=== PATIENT | female | born 1975 | race Caucasian/White ===

== ENCOUNTER 2020-10-07 16:17 | Outpatient (REF) | payer OTHER, SELFPAY ==
--- NOTE | 2020-10-07 16:27 | XR_ITS ---
EXAMINATION: BILATERAL KNEES AND BILATERAL FEET CLINICAL INFORMATION: Pain COMPARISON: The studies of June 12, 2017 and May 24, 2017 TECHNIQUE: AP and lateral views of each knee. 3 views of each foot. FINDINGS: 2 views of the left knee do not demonstrate any evidence of acute fracture dislocation. No effusion is appreciated. There is severe narrowing of the medial joint space compartment with some marginal sclerosis and spurring. The lateral joint space is maintained. There is spurring about the undersurface of the patella and femoral head. 2 views of the right knee do not demonstrate any evidence of acute fracture or dislocation. No effusion is identified. There is narrowing of the medial joint space compartment. Spurring undersurface of the patella is seen. There is no evidence of acute fracture or dislocation of the left foot. Prominent calcaneal spurs at seen sites of insertion of Achilles and plantar tendons. Joint spaces are maintained. No erosive change noted. There is no evidence of acute fracture or dislocation of the right foot. Calcaneal spurs sites insertion of the Achilles and plantar tendons evident. There is some spurring dorsum of the proximal navicular without overlying soft tissue swelling. Repeat foreign bodies are seen within the soft tissues about the medial aspect of the first proximal phalanx. There appears be some degenerative change involving posterior aspect of the subtalar joint. There is a prominent os sustentacular tracy. XR/XR foot RT min 3V IMPRESSION: Bilateral degenerative change of the knees involving the medial joint space compartments and patellofemoral joints. Bilateral calcaneal spurs involving sites of insertion of Achilles and plantar tendons.
== END 2020-10-07 16:18 | disposition home or self-care (01) ==
LOC: HO.HMGCX 16:17
PROVIDERS: PCP Internal Medicine; Visit Provider Internal Medicine
DX: M25.561 Pain in right knee (principal); M25.562 Pain in left knee; M79.672 Pain in left foot; M79.671 Pain in right foot
CPT/HCPCS: 73560; 73630

== ENCOUNTER 2020-12-11 14:03 | Outpatient (REF) | payer OTHER, SELFPAY ==
[2020-12-11 16:38] LABS: MANUAL DIFF FLAG NO
[2020-12-11 16:41] LABS: Basophils Percent Auto 0.4 % (0-2); Eosinophils Absolute Auto 0.1 X10*3/uL (0.0-0.4); Eosinophils Percent Auto 1.5 % (0-4); Hematocrit 45.1 % (37-47); Hemoglobin 15.3 g/dl (12.0-16.0); Imm Gran Abs Auto 0.01 X10*3/uL (0.00-0.03); Imm Gran Pct Auto 0.2 % (0.0-0.4); Lymphocytes Absolute Auto 1.8 X10*3/uL (1.2-4.9); Lymphocytes Percent Auto 37.7 % (20-40); Mean Corpuscular HGB Conc 33.9 g/dl (31.0-35.0); Mean Corpuscular Hemoglobin 30.5 pg (27.0-33.0); Mean Corpuscular Volume 89.8 fL (80-98); Mean Platelet Volume 10.1 fL (9.4-12.3); Monocytes Absolute Auto 0.4 X10*3/uL (0.1-1.2); Monocytes Percent Auto 7.9 % (2-11); Neutrophils Absolute Auto 2.5 X10*3/uL (2.0-8.3); Neutrophils Percent Auto 52.3 % (45-73); Platelet Count 247 X10*3/uL (160-400); Red Blood Count 5.02 X10*6/uL (4.20-5.50); Red Cell Distribution Width 11.7 % (11.0-16.0); White Blood Count 4.8 X10*3/uL (4.8-10.8)
[2020-12-11 17:18] LABS: Alanine Aminotransferase 80 U/L (0-31); Albumin Level 4.1 g/dL (3.5-5.0); Alkaline Phosphatase 73 U/L (39-117); Anion Gap 15 (12-20); Aspartate Amino Transferase 40 U/L (5-31); Bilirubin Direct 0.3 mg/dL (0.0-0.5); Bilirubin Total 0.8 mg/dL (0.0-1.0); Blood Urea Nitrogen 12 mg/dL (9-16); Calcium 8.8 mg/dL (8.4-10.2); Carbon Dioxide 24 mmol/L (22-29); Chloride 105 mmol/L (96-108); Cholesterol 195 mg/dL; Estimated Glomerular Filt Rate > 60; Glucose Fasting 106 mg/dL (60-99); HDL Cholesterol 40 mg/dL; LDL Cholesterol Calculated 121 mg/dl; Potassium 4.2 mmol/l (3.3-5.1); Sodium 140 mmol/L (135-145); Total Protein 7.1 g/dL (6.5-8.0); Triglycerides 171 mg/dL
[2020-12-11 17:22] LABS: Glucose Urine UA NEG (NEG); Leukocyte Esterase Urine TRACE (NEG); Nitrite Urine NEG (NEG); Specific Gravity - Urine 1.025 (1.005-1.025); Urine Blood 1+ (NEG); Urine Ketones NEG (NEG); Urine Protein NEG (NEG-TRACE)
[2020-12-11 17:25] LABS: TSH reflex Free T4 1.73 mIU/mL (0.32-4.0)
[2020-12-11 17:28] LABS: Appearance Urine HAZY; Color Urine AMBER
[2020-12-11 18:08] LABS: Bacteria Urine 1+ /LPF; Mucus Urine 2+ /LPF; Squamous Epithelial Cell Urine 2+ /LPF
== END 2020-12-11 14:04 | disposition home or self-care (01) ==
LOC: HO.HMGCLDS 14:03
PROVIDERS: PCP Internal Medicine; Visit Provider Internal Medicine
DX: R42 Dizziness and giddiness (principal); E66.9 Obesity, unspecified; M25.562 Pain in left knee; M25.561 Pain in right knee; R53.83 Other fatigue; M79.671 Pain in right foot; M79.672 Pain in left foot
CPT/HCPCS: 36415; 80048; 80061; 80076; 81001; 81003; 84443; 85025; 87086

== ENCOUNTER 2022-02-01 08:01 | Outpatient (REF) | payer OTHER, SELFPAY ==
[2022-02-05 09:52] LABS: HPV mRNA E6/E7 rflx Not Detected (Not Detected)
== END 2022-02-01 08:02 | disposition home or self-care (01) ==
LOC: HO.LAB 08:01
PROVIDERS: Advanced Practice Midwife; PCP Internal Medicine; Visit Provider Obstetrics & Gynecology
DX: Z01.419 Encounter for gynecological examination (general) (routine) without abnormal findings (principal); Z11.51 Encounter for screening for human papillomavirus (HPV)
CPT/HCPCS: 87624; 88142

== ENCOUNTER 2022-05-20 15:19 | Outpatient (REF) | payer OTHER, SELFPAY ==
--- NOTE | ~2022-05-20 | MM_ITS ---
EXAMINATION: MM SCREENING DIGITAL BREAST TOMOSYNTHESIS, BILATERAL CLINICAL INFORMATION: Screening. Asymptomatic. Age 46. No prior breast imaging. Family history breast cancer, paternal aunt. The lifetime risk of breast cancer based on the Tyrer-Cuzick Model is 17%. COMPARISON: None (current study represents initial baseline exam). TECHNIQUE: Digital breast tomosynthesis is performed in both the craniocaudal and mediolateral oblique views along with computer-aided detection (CAD). Synthesized 2D images are generated from the tomosynthesis. Additional left CC view is provided. FINDINGS: The breasts are almost entirely fatty (ACR BI-RADS breast composition Category a). There are normal background stromal markings. No significant mass or architectural abnormality. There are scattered benign round and predominantly dermal calcifications in both breasts. The axilla are unremarkable. Skin contours are smooth. MM/MM tomosynthesis screening BI IMPRESSION: No mammographic evidence of malignancy. ASSESSMENT: BI-RADS 2: Benign RECOMMENDATION: Routine annual mammography screening. This patient's information was entered into a reminder system with a target due date for their next mammogram.
== END 2022-05-20 15:20 | disposition home or self-care (01) ==
LOC: HO.MAMMO 15:19
PROVIDERS: PCP Internal Medicine; Visit Provider Obstetrics & Gynecology
DX: Z12.31 Encounter for screening mammogram for malignant neoplasm of breast (principal)
CPT/HCPCS: 77063; 77067

== ENCOUNTER 2023-08-15 08:14 | Outpatient (AMB) | payer OTHER, SELFPAY ==
--- NOTE | 2023-08-15 08:24 | MHC.OFFVIS ---
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 No complaints. Last Pap/HPV was negative in 02/15 Last Mammogram was BI-RADS 2 in 05/18 No previous screening colonoscopy PFSH Medical History Nocturia Lightheaded Tired Obesity Foot pain, bilateral Knee pain, bilateral Surgical History Hx of gastric bypass Hx of cholecystectomy Family History Father No problems noted. Mother CVD (cardiovascular disease) Son No problems noted. Son No problems noted. Daughter No problems noted. Paternal Grandmother History of breast cancer Paternal Aunt History of breast cancer Social History Household Members: Spouse Housing: House Alcohol intake: current Alcohol intake frequency: a few times a week Patient Tobacco Use Status: Never used Tobacco Second Hand Smoke Exposure: No service: No Current occupational status: employed Current occupation: [employer] Sexually active: Yes Sexual orientation: Straight/Heterosexual Gender identity: Female Female Reproductive History Menstrual Total pregnancies: 3 Full term: 3 Number of Living Children: 3 Date of last pap smear: 02/03/22 Date of Mammogram: 05/20/22 Review of Systems Const All systems reviewed & are unremarkable except as noted in HPI and below Card Reports as per HPI Resp Reports as per HPI GI Reports as per HPI and Reports no additional complaints Reports as per HPI Physical Exam Vital Signs: BMI result Body Mass Index 36.0 Const General: cooperative, healthy appearing and comfortable Chest Chest palpation & inspection: normal inspection of the chest and normal palpation of entire chest wall Breast/axilla inspection: normal inspection of the breasts and normal inspection of the axillae Breast/axilla palpation: normal palpation of the breasts, normal palpation of the axillae and no axillary lymphadenopathy Resp Effort & Inspection: normal respiratory effort Auscultation: clear to auscultation bilaterally Percussion: percussion normal Cardio Palpation: normal PMI Rate: regular rate Rhythm: regular rhythm Heart sounds: no murmurs and no rubs Peripheral pulses: Peripheral pulses 2+ throughout GI Inspection: Yes normal to inspection Palpation (GI): Soft to palpation, nontender, no guarding, not rigid and No hepatosplenomegaly present Percussion: Yes normal to percussion Auscultation: normal bowel sounds Rectal Exam - Female: deferred General: Yes bladder normal to palpation External Female Exam: No lesion Speculum Exam - Vagina: normal appearance of the vagina, normal palpation, normal vaginal discharge and not erythematous Speculum Exam - Cervix: normal appearance of the cervix and normal palpation Bimanual exam- vagina & uterus: normal bimanual exam, normal palpation, uterine size normal, bladder normal to palpation, consistency normal and normal palpation Bimanual Exam- Adnexa, other: normal adnexae, no masses and no tenderness Assessment & Plan Assessment & Plan (1) Well woman exam: Code(s): Z01.419 - Encounter for gynecological examination (general) (routine) without abnormal findings Plan: Cotesting not indicated this year. Mammogram ordered. Counseled the patient about the recommended dietary allowance of 1000 mg of Calcium & 600 IU of vitamin D. The patient was instructed to perform monthly self-breast exams and to schedule an annual exam in a year; will refer to GI for screening colonoscopy. All questions answered and the patient verbalized understanding. Instructed the patient to schedule annual exam in a year Orders: Orders MM screening mammo BI Today Z12.31 - Encounter for screening mammogram for malignant neoplasm of breast Referrals Gastroenterology Referral Z12.11 - Encounter for screening for malignant neoplasm of colon Coding Level of Care Code Est Pt Prev Care 40-64y(46074) Diagnoses Well woman exam Z01.419
[2023-08-15 08:25] VITALS: BP 120/74; BMI 36.0
== END 2023-08-15 08:41 | disposition home or self-care (01) ==
PROVIDERS: PCP Internal Medicine; Visit Provider Obstetrics & Gynecology
DX: Z01.419 Encounter for gynecological examination (general) (routine) without abnormal findings (principal)
CPT/HCPCS: 99396

== ENCOUNTER → 2023-08-15 08:14 | Outpatient (BNVA) | payer OTHER, SELFPAY | PROVIDERS: PCP Internal Medicine; Visit Provider Obstetrics & Gynecology | DX: Z01.419 Encounter for gynecological examination (general) (routine) without abnormal findings (principal) | CPT/HCPCS: 99396 ==

== ENCOUNTER 2023-11-07 12:34 | Outpatient (AMB) | payer OTHER, SELFPAY ==
[2023-11-07 12:40] VITALS: BP 122/70; PULSE 72; O2SAT 98; BMI 37.0
--- NOTE | 2023-11-07 12:40 | MHC.PC.OV ---
Vital Signs 11/07/23 12:40 Height 5 ft 7 in Weight 236 lb BMI 37.0 BP 122/70 Blood Pressure Location Rt brachial Position Sitting Pulse 72 Pulse Source Pulse Oximeter Pulse Oximetry (%) 98 Oxygen Delivery Method Room Air Intake Visit Reasons: post COVID congestion Allergies acetaminophen [From Percocet] Allergy (Unknown, Verified 11/07/23 12:41) stomach upset oxycodone [From Percocet] Allergy (Unknown, Verified 11/07/23 12:41) stomach upset Surgical Glue Adverse Reaction (Unknown, Uncoded 08/15/23 08:25) unknown Medication List - Last Reconciled 11/07/23 by Sylvia Thorne MD ibuprofen 400 mg PO Q8H PRN Tobacco use date assessed: 11/07/23 Dental Screening Dental Screen Date: 11/07/23 Did you have a dental visit in the last 12 months?: No Did you have a dental problem in the last 6 months where you did not have access to dental care?: No Was dental information given to patient?: No HPI post COVID congestion HPI Details Patient is a 48-year-old female who has not been seen since 2020 came in today to be evaluated for possible chest infection Patient says that 2 weeks ago she had COVID infection, and since then she continued cough and is now productive of yellow phlegm Initially she had chills, but now feels shortness of breath with exertion, and feeling tired and fatigued. There is no nausea vomiting abdominal pain On examination patient starts coughing with deep breath I have ordered chest x-ray She is to take azithromycin course along with prednisone 20 mg for 5 days Follow-up appointment to be booked in 2 weeks FOR[facility]LY [facility], [facility] Medical History Nocturia Lightheaded Tired Obesity Foot pain, bilateral Knee pain, bilateral Surgical History Hx of gastric bypass Hx of cholecystectomy Family History Father No problems noted. Mother CVD (cardiovascular disease) Son No problems noted. Son No problems noted. Daughter No problems noted. Paternal Grandmother History of breast cancer Paternal Aunt History of breast cancer Social History Household Members: Spouse Housing: House Alcohol intake: current Alcohol intake frequency: a few times a week Patient Tobacco Use Status: Never used Tobacco e-Cigarette/Vaping Use: Never Used Second Hand Smoke Exposure: No service: No Current occupational status: employed Current occupation: [employer] Sexual orientation: Straight/Heterosexual Gender identity: Female Cognitive needs: No Hearing needs: No Vision needs: Yes Questionnaire PHQ-9 Over the last 2 weeks, how often have you been bothered by any of the following problems? 1. Little interest or pleasure in doing things: not at all 2. Feeling down, depressed, or hopeless: not at all 3. Trouble falling or staying asleep, or sleeping too much: several days 4. Feeling tired or having little energy: several days 5. Poor appetite or overeating: not at all 6. Feeling bad about yourself - or that you are a failure or have let yourself or your family down: not at all 7. Trouble concentrating on things, such as reading the newspaper or watching television: not at all 8. Moving or speaking so slowly that other people could have noticed. Or the opposite - being so fidgety or restless that you have been moving around a lot more than usual: not at all 9. Thoughts that you would be better off or of hurting yourself in some way: not at all Total score: 2 Depression Screening Interpretation: Negative Depression Screening Done: Yes 59293 - PHQ-9 Billing: Yes Source: Developed by Drs. Kyler Menard, Lyn Rayo, Chaim Quezada and colleagues, with an educational ivy from [employer]. Thrive Questionnaire Date Thrive assessed: 11/07/23 I am a: Patient What is your living situation today?: I have a steady place to live Within the past 12 months, did the food you bought not last and you didn't have the money to get more?: Never true Within the past 12 months, did you worry whether your food would run out before you got money to buy more?: Never true Do you have trouble paying for medicines?: No Do you have trouble getting transportation to medical appointments?: No Do you have trouble paying your heating and electricity bill?: No Do you have trouble taking care of your child, family member or friend?: No Do you have trouble with day-to-day activities such as bathing, preparing meals, shopping, managing finances, etc.?: No Are you currently unemployed and looking for a job?: No Are you interested in more education?: No Please select the resources that you would like help with: None Currently or been in a relationship where the following occur: no concerns reported AUDIT C Alcohol Use Questionnaire (AUDIT-C) 1. How often do you have a drink containing alcohol?: Monthly or less 2. How many drinks containing alcohol do you have on a typical day when you are drinking?: 1 or 2 3. How often do you have six or more drinks on one occasion?: Less than monthly Total Score: 2 Score Reviewed/Action Taken: Yes CUCO-7 AMB Questionnaire CUCO-7 Date CUCO - 7 assessed: 11/07/23 Feeling nervous, anxious, or on edge: 0 = Not at all Not being able to stop or control worryin = Not at all Worrying too much about different things: 0 = Not at all Trouble relaxin = Not at all Being so restless that it is hard to sit still: 0 = Not at all Becoming easily annoyed or irritable: 0 = Not at all Feeling afraid as if something awful might happen: 0 = Not at all Total CUCO-7 score (0-4 normal; 5-9 mild; 10-14 moderate; 15-21 severe): 0 Source: Developed by Drs. Kyler Menard, Lyn Rayo, Chaim Quezada and colleagues, with an educational ivy from [employer]. CUCO-7 Assessment Billing CUCO-7 Assessment Tool: CUCO-7 Assessment 35766 Review of Systems Const Denies fever(s) ENT Denies epistaxis and Denies nasal discharge Card Denies chest pain Resp Denies hemoptysis GI Denies diarrhea and Denies nausea Skin/Breast Denies rash Neuro Reports no additional complaints Psych Reports no additional complaints Endo Reports no additional complaints Physical exam (Primary Care) Vital Signs: Last Vital Signs Pulse 72 11/07/23 12:40 BP 122/70 11/07/23 12:40 Pulse Ox 98 11/07/23 12:40 Oxygen Delivery Method Room Air 11/07/23 12:40 BMI result Body Mass Index 37.0 Tobacco/Smoking Status: Tobacco use Status Tobacco use date assessed 11/07/23 11/07/23 12:43 Patient Tobacco Use Status Never used Tobacco 11/07/23 12:43 e-Cigarette/Vaping Use Never Used 11/07/23 12:43 Depression Screening Interpretation: Negative Thrive Assessment: Date of Thrive Assessment Date Thrive assessed 06/01/21 11/07/23 12:43 Currently or been in a relationship where the following occur: no concerns reported Const General: cooperative, comfortable and no acute distress Orientation/consciousness: patient oriented x3 HENMT Head: Yes normocephalic Eyes General: appearance normal, both eyes and all related structures Neck Neck: Yes supple Resp Effort & Inspection: normal respiratory effort, no cough and no stridor Cardio Rhythm: regular rhythm Heart sounds: S1 normal heart sound present and S2 normal heart sound present Skin General skin exam: turgor normal Neuro General: patient oriented x3, tone normal and moves all extremities Extrem Right lower extremity: no edema Left lower extremity: no edema Assessment and Plan Assessment & Plan (1) Chest congestion: Code(s): R09.89 - Other specified symptoms and signs involving the circulatory and respiratory systems (2) Cough: Code(s): R05.9 - Cough, unspecified Qualifiers: Cough type: acute Qualified Code(s): R05.1 - Acute cough (3) Post-COVID syndrome: Code(s): U09.9 - Post COVID-19 condition, unspecified (4) Fatigue: Code(s): R53.83 - Other fatigue Qualifiers: Fatigue type: postviral fatigue syndrome Qualified Code(s): G93.31 - Postviral fatigue syndrome (5) Shortness of breath: Code(s): R06.02 - Shortness of breath Plan Patient is a 48-year-old female who has not been seen since 2020 came in today to be evaluated for possible chest infection Patient says that 2 weeks ago she had COVID infection, and since then she continued cough and is now productive of yellow phlegm Initially she had chills, but now feels shortness of breath with exertion, and feeling tired and fatigued. There is no nausea vomiting abdominal pain On examination patient starts coughing with deep breath I have ordered chest x-ray She is to take azithromycin course along with prednisone 20 mg for 5 days Follow-up appointment to be booked in 2 weeks Orders: Orders XR chest 2V Today R05.9 - Cough, unspecified, R06.02 - Shortness of breath, R09.89 - Other specified symptoms and signs involving the circulatory and respiratory systems, R53.83 - Other fatigue, U09.9 - Post COVID-19 condition, unspecified Medications: New azithromycin Take 2 tablets today then 1 daily 250 mg PO ONCE 5 days 6 tabs 0RF J06.9 - Acute upper respiratory infection, unspecified prednisone 20 mg PO DAILY 5 days 5 tabs 0RF Coding Level of Care Code Est Pt Level 4 (01203) Diagnoses Chest congestion R09.89 Acute cough R05.1 Cough type: acute Post-COVID syndrome U09.9 Postviral fatigue syndrome G93.31 Fatigue type: postviral fatigue syndrome Shortness of breath R06.02 Additional Codes CUCO-7 Assessment Billing - CUCO-7 Assessment Tool: CUCO-7 Assessment 06900 ([id number])
== END 2023-11-07 14:06 | disposition home or self-care (01) ==
PROVIDERS: PCP Internal Medicine; Visit Provider Internal Medicine
DX: R09.89 Other specified symptoms and signs involving the circulatory and respiratory systems (principal); R05.1 Acute cough; U09.9 Post COVID-19 condition, unspecified; G93.31 Postviral fatigue syndrome; R06.02 Shortness of breath
CPT/HCPCS: 99214

== ENCOUNTER 2023-11-07 12:52 | Outpatient (REF) | payer OTHER, SELFPAY ==
--- NOTE | ~2023-11-07 | XR_ITS ---
EXAMINATION: XR CHEST 2 VIEW CLINICAL INFORMATION: Other specified symptoms and signs of the circulatory system. COMPARISON: 08/25/2016 TECHNIQUE: PA and lateral views of the chest obtained. FINDINGS: The lungs are clear. There are no pleural effusions. The cardiomediastinal silhouette is normal. XR/XR chest 2V IMPRESSION: No acute cardiopulmonary disease.
== END 2023-11-07 12:53 | disposition home or self-care (01) ==
LOC: HO.HMGCX 12:52
PROVIDERS: PCP Internal Medicine; Visit Provider Internal Medicine
DX: R09.89 Other specified symptoms and signs involving the circulatory and respiratory systems (principal); R05.9 Cough, unspecified; U09.9 Post COVID-19 condition, unspecified; R53.83 Other fatigue; R06.02 Shortness of breath
CPT/HCPCS: 71046

== ENCOUNTER 2024-07-23 14:03 | Outpatient (AMB) | payer OTHER, SELFPAY ==
[2024-07-23 14:08] VITALS: BP 132/84; PULSE 85; O2SAT 97; BMI 37.5
--- NOTE | 2024-07-23 14:08 | MHC.PC.OV ---
Vital Signs 07/23/24 14:08 Height 5 ft 7 in Weight 239 lb 4 oz BMI 37.5 BP 132/84 Blood Pressure Location Lt brachial Position Sitting Pulse 85 Pulse Source Pulse Oximeter Pulse Oximetry (%) 97 Oxygen Delivery Method Room Air Intake Visit Reasons: Physical Exam Allergies acetaminophen [From Percocet] Allergy (Unknown, Verified 07/23/24 14:08) stomach upset oxycodone [From Percocet] Allergy (Unknown, Verified 07/23/24 14:08) stomach upset Surgical Glue Adverse Reaction (Unknown, Uncoded 08/15/23 08:25) unknown Medication List - Last Reviewed 07/23/24 by Dominga Meza MA No Known Home Meds Tobacco use date assessed: 07/23/24 Dental Screening Dental Screen Date: 07/23/24 Did you have a dental visit in the last 12 months?: Yes Did you have a dental problem in the last 6 months where you did not have access to dental care?: No Was dental information given to patient?: Patient has dentist HPI Physical Exam HPI Details Patient is a 49-year-old female came in today for physical exam I noticed that I do not have any labs since 2020 Order placed to be done fasting Patient is also prediabetic we will be monitoring sugar BMI is elevated need to lose weight OBGYN visit up-to-date with Dr. Ioana Saleem for colonoscopy Patient is going through menopause and is having difficulty sleeping Hot flashes, mood irritability. I am starting her on venlafaxine 37.5 mg We will book a telemedicine visit in 11 weeks to see how she is doing If there is any problem taking medication patient will stop and let me know before Physical exam 1 year [facility] Medical History Nocturia Lightheaded Tired Obesity Foot pain, bilateral Knee pain, bilateral Surgical History Hx of gastric bypass Hx of cholecystectomy Family History Father No problems noted. Mother CVD (cardiovascular disease) Son No problems noted. Son No problems noted. Daughter No problems noted. Paternal Grandmother History of breast cancer Paternal Aunt History of breast cancer Social History Household Members: Spouse Housing: House Alcohol intake: current Alcohol intake frequency: a few times a week Patient Tobacco Use Status: Never used Tobacco e-Cigarette/Vaping Use: Never Used Second Hand Smoke Exposure: No service: No Current occupational status: employed Current occupation: [employer] Sexual orientation: Straight/Heterosexual Gender identity: Female Cognitive needs: No Hearing needs: No Vision needs: Yes Questionnaire PHQ-9 Over the last 2 weeks, how often have you been bothered by any of the following problems? 1. Little interest or pleasure in doing things: not at all 2. Feeling down, depressed, or hopeless: not at all 3. Trouble falling or staying asleep, or sleeping too much: several days 4. Feeling tired or having little energy: several days 5. Poor appetite or overeating: not at all 6. Feeling bad about yourself - or that you are a failure or have let yourself or your family down: not at all 7. Trouble concentrating on things, such as reading the newspaper or watching television: not at all 8. Moving or speaking so slowly that other people could have noticed. Or the opposite - being so fidgety or restless that you have been moving around a lot more than usual: not at all 9. Thoughts that you would be better off or of hurting yourself in some way: not at all Total score: 2 Depression Screening Interpretation: Negative Depression Screening Done: Yes 89360 - PHQ-9 Billing: Yes Source: Developed by Drs. Kyler Menard, Lyn Rayo, Chaim Quezada and colleagues, with an educational ivy from [employer]. Thrive Questionnaire Date Thrive assessed: 07/23/24 I am a: Patient What is your living situation today?: I have a steady place to live Within the past 12 months, did the food you bought not last and you didn't have the money to get more?: Sometimes True Within the past 12 months, did you worry whether your food would run out before you got money to buy more?: Sometimes True Do you have trouble paying for medicines?: No Do you have trouble getting transportation to medical appointments?: No Do you have trouble paying your heating and electricity bill?: Yes Do you have trouble taking care of your child, family member or friend?: No Do you have trouble with day-to-day activities such as bathing, preparing meals, shopping, managing finances, etc.?: No Are you currently unemployed and looking for a job?: No Are you interested in more education?: No Please select the resources that you would like help with: None Currently or been in a relationship where the following occur: No concerns reported THRIVE Score: 3 AUDIT C Alcohol Use Questionnaire (AUDIT-C) 1. How often do you have a drink containing alcohol?: Monthly or less 2. How many drinks containing alcohol do you have on a typical day when you are drinking?: 3 or 4 3. How often do you have six or more drinks on one occasion?: Never Total Score: 2 Score Reviewed/Action Taken: Yes CUCO-7 AMB Questionnaire CUCO-7 Date CUCO - 7 assessed: 07/23/24 Feeling nervous, anxious, or on edge: 1 = Several days Not being able to stop or control worryin = Several days Worrying too much about different things: 3 = Nearly every day Trouble relaxin = Several days Being so restless that it is hard to sit still: 0 = Not at all Becoming easily annoyed or irritable: 1 = Several days Feeling afraid as if something awful might happen: 0 = Not at all Total CUCO-7 score (0-4 normal; 5-9 mild; 10-14 moderate; 15-21 severe): 7 Source: Developed by Drs. Kyler Menard, Lyn Rayo, Chaim Quezada and colleagues, with an educational ivy from [employer]. CUCO-7 Assessment Billing CUCO-7 Assessment Tool: CUCO-7 Assessment 28115 Review of Systems Const Denies chills, Denies fever(s) and Denies headache(s) Eyes Denies blurry vision ENT Denies headache(s), Denies nasal discharge, Denies nasal obstruction, Denies odynophagia and Denies sinus pain Card Denies chest pain at rest and Denies chest pain with activity Resp Denies cough and Denies hemoptysis GI Denies diarrhea, Denies odynophagia, Denies vomiting and Denies hematemesis Reports as per HPI Musc Denies abnormal gait Skin/Breast Reports as per HPI Neuro Denies Neuro-related abnormal movements, Denies Abnormal speech present, Denies abnormal gait, Denies headache(s) and Denies Sensory deficit (Neuro) Psych Denies mood swings and Denies paranoia Endo Reports as per HPI Saroj/Lymph Reports as per HPI Aller/Immun Reports as per HPI Physical exam (Primary Care) Vital Signs: Last Vital Signs Pulse 85 07/23/24 14:08 BP 132/84 07/23/24 14:08 Pulse Ox 97 07/23/24 14:08 Oxygen Delivery Method Room Air 07/23/24 14:08 BMI result Body Mass Index 37.5 Tobacco/Smoking Status: Tobacco use Status Tobacco use date assessed 07/23/24 07/23/24 14:09 Patient Tobacco Use Status Never used Tobacco 07/23/24 14:09 e-Cigarette/Vaping Use Never Used 07/23/24 14:09 PHQ-9: PHQ-9 Score PHQ-9: Total score 2 07/23/24 14:09 Depression Screening Interpretation: Negative Thrive Assessment: Date of Thrive Assessment Date Thrive assessed 07/23/24 07/23/24 14:09 Currently or been in a relationship where the following occur: No concerns reported Const General: cooperative, comfortable and no acute distress Orientation/consciousness: patient oriented x3 HENMT Head: Yes normocephalic and Yes atraumatic Eyes General: appearance normal, both eyes and all related structures Pupils: Equal, round and reactive pupils present EOM: EOMs intact bilaterally Neck Neck: Yes supple and No lymphadenopathy Thyroid: Thyroid normal Lymphatic: no lymphadenopathy noted Resp Effort & Inspection: normal respiratory effort and able to speak in complete sentences Auscultation: clear to auscultation bilaterally Cardio Heart sounds: S1 normal heart sound present and S2 normal heart sound present GI Palpation (GI): Soft to palpation and nontender Auscultation: normal bowel sounds General: Yes no CVA tenderness Back/Spine/Pelvis Back: no CVA tenderness Skin General skin exam: elasticity normal and turgor normal Neuro General: patient oriented x3 and gait normal Cranial nerves: Yes Equal, round and reactive pupils present Speech: No Abnormal speech present Sensory Exam: No Sensory deficit (Neuro) Coordination: tandem gait normal and Romberg test negative Extrem General: Yes normal exam except as noted and No edema Assessment and Plan Assessment & Plan (1) Encounter for general adult medical examination with abnormal findings: Code(s): Z00.01 - Encounter for general adult medical examination with abnormal findings (2) Pre-diabetes: Code(s): R73.03 - Prediabetes (3) LFT elevation: Code(s): R79.89 - Other specified abnormal findings of blood chemistry (4) Obesity: Code(s): E66.9 - Obesity, unspecified Qualifiers: Obesity type: due to excess calories Obesity classification: adult class 2 (BMI 35 - 39.9) Serious obesity comorbidity presence: without serious comorbidity Body mass index: BMI 37.0-37.9 Qualified Code(s): E66.09 - Other obesity due to excess calories; Z68.37 - Body mass index [BMI] 37.0-37.9, adult (5) Hot flushes, perimenopausal: Code(s): N95.1 - Menopausal and female climacteric states (6) Irritable mood: Code(s): R45.4 - Irritability and anger Plan Patient is a 49-year-old female came in today for physical exam I noticed that I do not have any labs since 2020 Order placed to be done fasting Patient is also prediabetic we will be monitoring sugar BMI is elevated need to lose weight OBGYN visit up-to-date with Dr. Ioana Saleem for colonoscopy Patient is going through menopause and is having difficulty sleeping Hot flashes, mood irritability. I am starting her on venlafaxine 37.5 mg We will book a telemedicine visit in 11 weeks to see how she is doing If there is any problem taking medication patient will stop and let me know before Physical exam 1 year Orders: Orders Complete Blood Count Auto Diff Today E66.01 - Morbid (severe) obesity due to excess calories, R73.03 - Prediabetes, R79.89 - Other specified abnormal findings of blood chemistry, Z00.01 - Encounter for general adult medical examination with abnormal findings Comprehensive [place]. Panel Fast Today E66.01 - Morbid (severe) obesity due to excess calories, R73.03 - Prediabetes, R79.89 - Other specified abnormal findings of blood chemistry, Z00.01 - Encounter for general adult medical examination with abnormal findings Lipid Panel Today E66.01 - Morbid (severe) obesity due to excess calories, R73.03 - Prediabetes, R79.89 - Other specified abnormal findings of blood chemistry, Z00.01 - Encounter for general adult medical examination with abnormal findings Hemoglobin A1c Today E66.9 - Obesity, unspecified, R73.03 - Prediabetes Vitamin D 25-OH (D2 and D3) Today E66.01 - Morbid (severe) obesity due to excess calories, R73.03 - Prediabetes, R79.89 - Other specified abnormal findings of blood chemistry, Z00.01 - Encounter for general adult medical examination with abnormal findings TSH reflex Free T4 Today E66.01 - Morbid (severe) obesity due to excess calories, R73.03 - Prediabetes, R79.89 - Other specified abnormal findings of blood chemistry, Z00.01 - Encounter for general adult medical examination with abnormal findings Medications: New venlafaxine 37.5 mg PO DAILY 90 tabs 0RF Hot flashes Coding Level of Care Code Est Pt Level 3 (46390) Est Pt Prev Care 40-64y(80340) Diagnoses Encounter for general adult medical examination with abnormal findings Z00.01 Pre-diabetes R73.03 LFT elevation R79.89 Class 2 obesity due to excess calories without serious comorbidity with body mass index (BMI) of 37.0 to 37.9 in adult E66.09; Z68.37 Obesity type: due to excess calories Obesity classification: adult class 2 (BMI 35 - 39.9) Serious obesity comorbidity presence: without serious comorbidity Body mass index: BMI 37.0-37.9 Hot flushes, perimenopausal N95.1 Irritable mood R45.4 Additional Codes CUCO-7 Assessment Billing - CUCO-7 Assessment Tool: CUCO-7 Assessment 70304 ([id number])
== END 2024-07-23 14:39 | disposition home or self-care (01) ==
PROVIDERS: Visit Provider Internal Medicine
DX: Z00.00 Encounter for general adult medical examination without abnormal findings (principal); R73.03 Prediabetes; N95.1 Menopausal and female climacteric states; R45.4 Irritability and anger; E66.09 Other obesity due to excess calories; Z68.37 Body mass index [BMI] 37.0-37.9, adult
CPT/HCPCS: 99213; 99396

== ENCOUNTER 2024-10-02 08:29 | Outpatient (AMB) | payer OTHER, SELFPAY ==
--- NOTE | 2024-10-02 08:31 | A.OFFVIS_ITS ---
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 Complaining of irregular spotting over the last few months on Mirena IUD since 2016 Last Pap/HPV was negative in 02/15 Last Mammogram was BI-RADS 2 in 05/18 No previous screening colonoscopy PFSH Medical History Nocturia Lightheaded Tired Obesity Foot pain, bilateral Knee pain, bilateral Surgical History Hx of gastric bypass Hx of cholecystectomy Family History Father No problems noted. Mother CVD (cardiovascular disease) Son No problems noted. Son No problems noted. Daughter No problems noted. Paternal Grandmother History of breast cancer Paternal Aunt History of breast cancer Social History Household Members: Spouse Housing: House Alcohol intake: current Alcohol intake frequency: a few times a week Patient Tobacco Use Status: Never used Tobacco e-Cigarette/Vaping Use: Never Used Second Hand Smoke Exposure: No service: No Current occupational status: employed Current occupation: [employer] Sexual orientation: Straight/Heterosexual Gender identity: Female Cognitive needs: No Hearing needs: No Vision needs: Yes Female Reproductive History Menstrual control method: progestin IUCD (Mirena ) Total pregnancies: 3 Full term: 3 Date of last pap smear: 02/01/22 (negative pap smear, negative for HPV) Date of Mammogram: 05/20/22 (BI-RAD 2) Review of Systems Const All systems reviewed & are unremarkable except as noted in HPI and below Card Reports as per HPI Resp Reports as per HPI GI Reports as per HPI and Reports no additional complaints Reports as per HPI Physical Exam Vital Signs: Last Vital Signs BP 114/72 10/02/24 08:39 BMI result Body Mass Index 37.9 Const General: cooperative, healthy appearing and comfortable Chest Chest palpation & inspection: normal inspection of the chest and normal palpation of entire chest wall Breast/axilla inspection: normal inspection of the breasts and normal inspection of the axillae Breast/axilla palpation: normal palpation of the breasts, normal palpation of the axillae and no axillary lymphadenopathy Resp Effort & Inspection: normal respiratory effort Auscultation: clear to auscultation bilaterally Percussion: percussion normal Cardio Palpation: normal PMI Rate: regular rate Rhythm: regular rhythm Heart sounds: no murmurs and no rubs Peripheral pulses: Peripheral pulses 2+ throughout GI Inspection: Yes normal to inspection Palpation (GI): Soft to palpation, nontender, no guarding, not rigid and No hepatosplenomegaly present Percussion: Yes normal to percussion Auscultation: normal bowel sounds Rectal Exam - Female: deferred General: Yes bladder normal to palpation External Female Exam: No lesion Speculum Exam - Vagina: normal appearance of the vagina, normal palpation, normal vaginal discharge and not erythematous Speculum Exam - Cervix: normal appearance of the cervix and normal palpation Bimanual exam- vagina & uterus: normal bimanual exam, normal palpation, uterine size normal, bladder normal to palpation, consistency normal and normal palpation Bimanual Exam- Adnexa, other: normal adnexae, no masses and no tenderness Assessment & Plan Assessment & Plan (1) Well woman exam: Code(s): Z01.419 - Encounter for gynecological examination (general) (routine) without abnormal findings Category: Medical Plan: Co testing not indicated this year. Counseled the patient about the recommended dietary allowance of 1200 mg of Calcium & 600 IU of vitamin D. Mammogram ordered. The patient was referred to GI for screening colonoscopy . The patient was instructed to perform monthly self-breast exams and schedule annual exam in a year. All questions answered and the patient verbalized understanding. (2) Abnormal uterine bleeding: Code(s): N93.9 - Abnormal uterine and vaginal bleeding, unspecified Category: Medical Plan: GC and chlamydia taken CBC, TSH, prolactin, HCG, and pelvic ultrasound ordered. Discussed with the patient the different causes of abnormal bleeding including thyroid disorders, uterine and ovarian pathology, endometrial hyperplasia, carcinoma and other potential causes. Discussed with the patient the work up including CBC (to r/o anemia), TSH, prolactin, FSH/LH, pelvic Ultrasound, endometrial biopsy to r/o endometrial pathology. All questions answered and the patient verbalized understanding. Instructed the patient to schedule an appointment for an endometrial biopsy in 2 weeks. Orders: Orders MM tomosynthesis screening BI Today Z12.31 - Encounter for screening mammogram for malignant neoplasm of breast Complete Blood Count no Diff Today N93.9 - Abnormal uterine and vaginal bleedi ng, unspecified TSH reflex Free T4 Today N93.9 - Abnormal uterine and vaginal bleeding, unspecified Prolactin Today N93.9 - Abnormal uterine and vaginal bleeding, unspecified HCG Quantitative Today N93.9 - Abnormal uterine and vaginal bleeding, unspecified Follicle Stimulating Hormone Today N93.9 - Abnormal uterine and vaginal bleeding, unspecified Lutenizing Hormone Today N93.9 - Abnormal uterine and vaginal bleeding, unspecified US pelvic and transvaginal Today N93.9 - Abnormal uterine and vaginal bleeding, unspecified Referrals Gastroenterology Referral Z12.11 - Encounter for screening for malignant neoplasm of colon Coding Level of Care Code Est Pt Level 3 (25446) Est Pt Prev Care 40-64y(65610) Diagnoses Well woman exam Z01.419 Abnormal uterine bleeding N93.9
[2024-10-02 08:39] VITALS: BP 114/72; BMI 37.9
== END 2024-10-02 09:07 | disposition home or self-care (01) ==
LOC: HO.HWS 08:29
PROVIDERS: PCP Internal Medicine; Visit Provider Obstetrics & Gynecology
DX: Z01.419 Encounter for gynecological examination (general) (routine) without abnormal findings (principal); N93.9 Abnormal uterine and vaginal bleeding, unspecified
CPT/HCPCS: 99213; 99396

== ENCOUNTER 2024-10-02 08:29 | Outpatient (REF) | payer OTHER, SELFPAY ==
[2024-10-02 11:05] LABS: Hemoglobin 15.3 g/dl (12.0-16.0); Mean Corpuscular HGB Conc 35.6 g/dl (31.0-35.0); Mean Corpuscular Hemoglobin 31.2 pg (27.0-33.0); Mean Corpuscular Volume 87.6 fL (80.0-98.0); Mean Platelet Volume 9.8 fL (9.4-12.3); Platelet Count 274 X10*3/uL (160-400); Red Blood Count 4.91 X10*6/uL (4.20-5.50); Red Cell Distribution Width 11.9 % (11.0-16.0); White Blood Count 4.2 X10*3/uL (4.8-10.8)
[2024-10-02 12:02] LABS: HCG Quantitative < 2 mIU/mL; TSH reflex Free T4 1.64 uIU/mL (0.32-4.0)
[2024-10-03 05:45] LABS: CT PCR NOT DETECTED (Not Detect.); NG PCR NOT DETECTED (Not Detect.)
[2024-10-03 08:23] LABS: Follicle Stimulating Hormone 70.8 mIU/mL; Lutenizing Hormone 43.6 mIU/mL; Prolactin 5.8 ng/mL
== END 2024-10-02 08:30 | disposition home or self-care (01) ==
LOC: HO.LNP 08:29
PROVIDERS: PCP Internal Medicine; Visit Provider Obstetrics & Gynecology
DX: Z01.419 Encounter for gynecological examination (general) (routine) without abnormal findings (principal); N93.9 Abnormal uterine and vaginal bleeding, unspecified; Z20.2 Contact with and (suspected) exposure to infections with a predominantly sexual mode of transmission; Z97.5 Presence of (intrauterine) contraceptive device
CPT/HCPCS: 83001; 83002; 84146; 84443; 84702; 85027; 87491; 87591; 99212; 99396

== ENCOUNTER 2024-10-02 09:19 | Outpatient (REF) | payer OTHER, SELFPAY | END 2024-10-02 09:20 | disposition home or self-care (01) | LOC: HO.LAB 09:19 | PROVIDERS: PCP Internal Medicine; Visit Provider Obstetrics & Gynecology | DX: Z13.89 Encounter for screening for other disorder (principal) ==

== ENCOUNTER 2024-10-10 08:12 | Outpatient (AMB) | payer OTHER, SELFPAY ==
--- NOTE | 2024-10-10 08:14 | A.OFFPC_ITS ---
Intake Visit Reasons: 11 week follow up Allergies acetaminophen [From Percocet] Allergy (Unknown, Verified 10/10/24 08:15) stomach upset oxycodone [From Percocet] Allergy (Unknown, Verified 10/10/24 08:15) stomach upset Surgical Glue Adverse Reaction (Unknown, Uncoded 08/15/23 08:25) unknown Medication List - Last Reconciled 10/10/24 by Sylvia Thorne MD No Known Home Meds Tobacco use date assessed: 10/10/24 Dental Screening Dental Screen Date: 10/10/24 Did you have a dental visit in the last 12 months?: Yes Did you have a dental problem in the last 6 months where you did not have access to dental care?: No Was dental information given to patient?: Patient has dentist HPI 11 week follow up HPI Details f.u hot flashes Patient tried Venlafaxin, but didnt like how it made her feel she also had a visit with [facility], and is in process of having US pelvis before her IUD removed she has not done the labs i ordered, this visit was also to go over them [facility], [facility] Medical History Nocturia Lightheaded Tired Obesity Foot pain, bilateral Knee pain, bilateral Surgical History Hx of gastric bypass Hx of cholecystectomy Family History Father No problems noted. Mother CVD (cardiovascular disease) Son No problems noted. Son No problems noted. Daughter No problems noted. Paternal Grandmother History of breast cancer Paternal Aunt History of breast cancer Social History Household Members: Spouse Housing: House Alcohol intake: current Alcohol intake frequency: a few times a week Patient Tobacco Use Status: Never used Tobacco e-Cigarette/Vaping Use: Never Used Second Hand Smoke Exposure: No service: No Current occupational status: employed Current occupation: [employer] Sexual orientation: Straight/Heterosexual Gender identity: Female Cognitive needs: No Hearing needs: No Vision needs: Yes Questionnaire Thrive Questionnaire Date Thrive assessed: 07/16/24 AUDIT C Alcohol Use Questionnaire (AUDIT-C) 1. How often do you have a drink containing alcohol?: Monthly or less 2. How many drinks containing alcohol do you have on a typical day when you are drinking?: 3 or 4 3. How often do you have six or more drinks on one occasion?: Never Total Score: 2 Score Reviewed/Action Taken: Yes CUCO-7 AMB Questionnaire CUCO-7 Date CUCO - 7 assessed: 07/23/24 Source: Developed by Drs. Kyler Menard, Lyn Rayo, Chaim Quezada and colleagues, with an educational ivy from [employer]. Review of Systems Const All systems reviewed & are unremarkable except as noted in HPI and below Physical exam (Primary Care) Tobacco/Smoking Status: Tobacco use Status Tobacco use date assessed 10/10/24 10/10/24 08:15 Patient Tobacco Use Status Never used Tobacco 10/10/24 08:15 e-Cigarette/Vaping Use Never Used 10/10/24 08:15 Thrive Assessment: Date of Thrive Assessment Date Thrive assessed 07/16/24 10/10/24 08:15 Telehealth Telehealth Telehealth Platform: [employer] Location of provider rendering services: practice address Location of patient: address on file Patient Identification confirmed using: Name, : Yes Telehealth method: voice only Patient verbally consented to treatment: Yes Patient verbally consented to billing insurance company: Yes Patient informed of any privacy concerns related to visit: Yes Minutes spent on Phone/Video with Pt.: 12 Coding Level of Care Code Tele Est Pt Level 3 (09908) Diagnoses Hot flushes, perimenopausal N95.1 Assessment & Plan Assessment & Plan (1) Hot flushes, perimenopausal: Code(s): N95.1 - Menopausal and female climacteric states Category: Medical Plan f.u hot flashes Patient tried Venlafaxin, but didnt like how it made her feel [facility] and [facility] in process of having US pelvis before her IUD removed she has not done the labs i ordered, this visit was also to go over them
== END 2024-10-10 15:42 | disposition home or self-care (01) ==
LOC: HO.HMCC 08:12
PROVIDERS: PCP Internal Medicine; Visit Provider Internal Medicine
DX: N95.1 Menopausal and female climacteric states (principal)

== ENCOUNTER 2024-10-10 16:22 | Outpatient (REF) | payer OTHER, SELFPAY | END 2024-10-10 16:23 | disposition home or self-care (01) | LOC: HO.US 16:22 | PROVIDERS: PCP Internal Medicine; Visit Provider Obstetrics & Gynecology | DX: N93.9 Abnormal uterine and vaginal bleeding, unspecified (principal) | CPT/HCPCS: 76830; 76856 ==

== ENCOUNTER 2025-01-28 07:33 | Outpatient (AMB) | payer OTHER, SELFPAY ==
[2025-01-28 07:33] VITALS: BP 118/80; BMI 37.7
--- NOTE | 2025-01-28 07:33 | A.OFFVIS_ITS ---
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 Technician: Fiberglass Quality Technician Present (Trisha POLLACK) Accompanied by: Self / Same As Patient Allergies acetaminophen [From Percocet] Allergy (Unknown, Verified 01/28/25 07:40) stomach upset oxycodone [From Percocet] Allergy (Unknown, Verified 01/28/25 07:40) stomach upset Surgical Glue Adverse Reaction (Unknown, Uncoded 01/28/25 07:40) unknown Is last menstrual period known: No (mirena) HPI Comments Details: Presenting for EMB [facility] Medical History Nocturia Lightheaded Tired Obesity Foot pain, bilateral Knee pain, bilateral Surgical History Hx of gastric bypass Hx of cholecystectomy Family History Father No problems noted. Mother CVD (cardiovascular disease) Son No problems noted. Son No problems noted. Daughter No problems noted. Paternal Grandmother History of breast cancer Paternal Aunt History of breast cancer Social History Household Members: Spouse Housing: House Alcohol intake: current Alcohol intake frequency: a few times a week Patient Tobacco Use Status: Never used Tobacco e-Cigarette/Vaping Use: Never Used Second Hand Smoke Exposure: No service: No Current occupational status: employed Current occupation: [employer] Sexual orientation: Straight/Heterosexual Gender identity: Female Cognitive needs: No Hearing needs: No Vision needs: Yes Female Reproductive History Menstrual control method: progestin IUCD Date of last pap smear: 02/03/22 Date of Mammogram: 05/20/22 Review of Systems Const All systems reviewed & are unremarkable except as noted in HPI and below Reports as per HPI and Reports no additional complaints GI Reports no additional complaints Reports no additional complaints Physical Exam Vital Signs: Last Vital Signs BP 118/80 01/28/25 07:33 BMI result Body Mass Index 37.7 Office Procedures Endometrial Biopsy Details: The patient was counseled regarding the indication and benefits of endometrial sampling to rule out endometrial pathology including not limited to endometrial hyperplasia or endometrial cancer and others; The alternatives (Either do nothing vs. hysteroscopy D&C) & the risks were discussed with the patient including but not limited: pain, uterine perforation, bleeding, infection, possible injury to bladder, bowel, ureter, possible need for blood transfusion with all its possible risks. The patient verbalized understanding all questions answered and signed consent. Urine test done in the office was negative The patient was placed into the dorsal lithotomy position; a speculum was inserted in the vagina. Using aseptic technique for the procedure, the cervix was cleansed with Betadine. The anterior lip of the cervix was grasped with a single tooth tenaculum. The uterus was sounded to 7 cm with a 4 mm Pipelle was used. Tissues samples were obtained and placed in formalin, in a patient labeled container and sent to the pathology department. At the end of the procedure, there was minimal bleeding noted The patient tolerated the procedure well and was discharged in good condition with the following instructions: Nothing in the vagina until the bleeding stops. No sex until the bleeding stops, to call if any of the following occurs: fever (>100.4), flu-like symptoms, abdominal pain, heavy bleeding, four smelling vaginal discharge. The patient was instructed to schedule a Follow up appointment in 2 weeks to discuss pathology results of the biopsy and treatment options. This note was generated with a voice recognition program. Some errors may have been overlooked during the review of this note. Sometimes these errors may affect the content or meaning of a given sentence. 94318-[id number] Biopsy Assessment & Plan Assessment & Plan (1) Abnormal uterine bleeding: Code(s): N93.9 - Abnormal uterine and vaginal bleeding, unspecified Category: Medical Plan: EMB done, see procedure Orders: Orders AMB Endometrial Biopsy Today N93.9 - Abnormal uterine and vaginal bleeding, unspecified Coding Level of Care Code Procedure Only Diagnoses Abnormal uterine bleeding N93.9 CPT Codes Endometrial Biopsy - CPT: 82860-Lwmznuhzvwd Biopsy ([id number])
--- OUTSIDE RECORDS SUMMARY | 2025-01-28 07:35 | XMS_ITS | Data Portability ---
Author Organization [facility], [address] Address [address] [place] [address] Care Team Providers Care Security Clerk Name Role Phone ZONIA VO Primary Care Provider Assessment No assessment recorded. Plan of Treatment Reminders Order Date Submit Date Provider Last Modified By Organization Details Last Modified Time Details Appointments None recorded. Lab rapid SARS CoV 2 Ag, QL IA, respiratory specimen 2022 023 [place] [address] [address], [address] [place] [address], [phone], 12:54:08 rapid flu (A+B) 2022 023 [place] [address] [facility], [address] [place] [address], [phone], 3 12:54:08 Referral None recorded. Procedures None recorded. Surgeries None recorded. Imaging None recorded. Medication Orders Tessalon Perles 100 mg capsule 2022 023 [place] [address] [id number], [address], [place], [address], 12:54:14 Patient TargetsNo targets recorded. Patient Instructions Encounter Date Encounter Id Patient Instructions Last Modified By Organization Details Last Modified Time 03/27/2023 [id number] cough: care instructions [place] [address] Not available 03/27/2023 12:54:08 upper respirator y infection (cold): care instructions [place] [id number] Not available 03/27/2023 12:54:22 Reason for Referral None Reported. Results Created Date Observation Date Name Description Value Unit Range Abnormal Flag Note LastModifiedBy Organization Detail LastModifiedTime 03/27/20 23 03/27/2023 rapid SARS CoV 2 Ag, QL IA, respi rator y speci men Unknown Analyte Normal =Negat genoveva Not Available [address] [place] [address] [place], [address], 03/27/2023 12:17:03 03/27/20 23 03/27/2023 rapid SARS CoV 2 Ag, QL IA, respi rator y speci men Unknown Analyte negati ve Not Available [address] [place] [address] [place], [address], 03/27/2023 12:17:03 03/27/20 23 03/27/2023 rapid flu (A+B) Unknown Analyte Normal = Negati ve Not Available [address] [place] [address] [place], [address], 03/27/2023 12:17:08 03/27/20 23 03/27/2023 rapid flu (A+B) Unknown Analyte Normal = Negati ve Not Available [address] [place] [address] [place], [address], 03/27/2023 12:17:08 03/27/20 23 03/27/2023 rapid flu (A+B) Unknown Analyte negati ve Not Available [address] [place], [place] [address], [address], 03/27/2023 12:17:08 03/27/20 23 03/27/2023 rapid flu (A+B) Unknown Analyte negati ve Not Available [address] [place] [address] [place], [address], 03/27/2023 12:17:08 Result Notes None recorded. Problems No Known Problems Procedures Surgical History Date Name Laterality Status Provider Name and Address Organization Details Recorded Time 02/26/20 22 laparoscopic sleeve gastrectomy completed Maria Fernanda VELASCO [email or web address] 03/27/2023 12:19:01 Imaging Results None recorded. Procedure Notes None recorded. Medical Equipment None Reported. Allergies Allergen ID Allergen Name Allergen Category Reaction Reaction Severity Criticality Documentation Date Start Date Code Code System Note Provider Name and Address Organization Details Recorded Time 339794 acetamino phen / oxycodone medicatio n Not available Not available Not available 03/27/2023 97411 3 RxNorm [email or web address] 12:17:57 Medications Name Sig Start Date Stop Date Status Note LastModified by Organization Details LastModified Time Tessalon Perles 100 mg capsule Take 1 capsule 3 times a day by oral route for 5 days. 023 active Not Available Not Available Not Avai lable Vitals Date Recorded Body height Body mass index (BMI) Body weight Pain severity - 0-10 verbal numeric rating [Score] - Reported Respiratory rate Oxygen saturation Oxygen saturation in Arterial blood by Pulse oximetry Heart rate Body temperature Systolic blood pressure Diastolic blood pressure Provider Name and Address Organization Details Last Updated DateTime 170.18 cm 34.9 kg/m2 845194. 1 g 5 18 /min 98 % 98 % 94 /min 98.3 [degF] 117 mm[Hg] 76 mm[Hg] Maria Fernandarossana Carrionflorin Aguillon [facility] 12:20:42 Social History Question Answer Notes LastModified by Organizat ion Details LastModified Time Tobacco Smoking Status Never Smoker [facility] 03/27/2023 12:18:42 What Is Your Level Of Alcohol Consumption? Occasional Information not available 03/27/2023 How Many Times Per Week Do You Consume Alcohol? 1-2 Times Per Week Information not available 03/27/2023 Do You Use Any Illicit Or Recreational Drugs? No Information not available 03/27/2023 Have You Recently Traveled Abroad? No Information not available 03/27/2023 Do You Or Have You Ever Used Any Other Forms Of Tobacco Or Nicotine? No Information not available 03/27/2023 Sex: Unknown Functional Status None recorded. Mental Status None recorded. Family History Relationship Description Onset Age of this Age Resolved Age Notes LastModified by Organization Details LastModified Time Mother Diabetes mellitus [email or web address] Not available 2022 12:18:29 Medical History No medical history recorded. Gynecological HistoryNo gynecological history recorded. Obstetrics History GPAL:G 0 P 0 0 0 0 Immunizations Vaccine Type Date Status Note Provider Nam e and Address Organization Details Recorded Time Influenza, split virus, quadrivalent, preservative 6 completed Maria Fernanda Monfette null, [place] - [facility] 03/27/2023 12:17:45 COVID-19, mRNA, LNP-S, PF, 100 mcg/0.5mL dose or 50 mcg/0.25mL dose 1 completed Maria Fernanda Monfette null, [place] - [facility] 03/27/2023 12:17:46 COVID-19, mRNA, LNP-S, PF, 100 mcg/0.5mL dose or 50 mcg/0.25mL dose 1 completed Maria Fernanda Monfette null, [place] - [facility] 03/27/2023 12:17:46 COVID-19, mRNA, LNP-S, PF, 100 mcg/0.5mL dose or 50 mcg/0.25mL dose 2 completed Maria Fernanda Monfette null, [place] - [facility] 03/27/2023 12:17:46 COVID-19, mRNA, LNP-S, PF, 100 mcg/0.5mL dose or 50 mcg/0.25mL dose 1 completed Maria Fernanda Monfette null, [place] - [facility] 03/27/2023 12:17:46 COVID-19, mRNA, LNP-S, bivalent, PF, 50 mcg/0.5 mL or 25mcg/0.25 mL dose 2 completed Maria Fernanda Monfette null, PA - [facility] 03/27/2023 12:17:46 Tdap 6 completed Maria Fernanda Monfette null, [place] - [facility] 03/27/2023 12:17:46 Influenza, split virus, trivalent, preservative 0 completed Maria Fernanda Dukes erasmo PA - [facility] 03/27/2023 12:17:46 Influenza, split virus, trivalent, preservative 0 completed Maria Fernanda Dukes erasmo, [place] - [facility] 03/27/2023 12:17:46 Past Encounters Encounter ID Performer Location Encounter Start Date Encounter Closed Date Diagnosis/Indication Diagnosis SNOMED-CT Code Diagnosis ICD10 Code Diagnosis Note [id number] [address] [address] [place] [address] 12/24/2018 19:48:33 12/24/2018 20:01:30 [id number] [facility] [address] [place] [address] 11/21/2019 17:29:51 11/21/2019 18:59:26 [id number] [address] [address] [place] [address] 01/30/2020 17:40:49 01/30/2020 19:06:35 [id number] [address] [address] [place] [address] 01/31/2019 19:01:12 01/31/2019 19:41:[id number] [address] [address] 06/29/2020 16:25:40 06/29/2020 17:59:08 [id number] [address] [address] [place] [address] 12/15/2015 16:49:49 12/15/2015 18:21:32 [id number] [address] [facility] [place] [address] 02/10/2021 18:50:11 02/10/2021 19:33:33 [id number] Aditya Ramon MD [address] [facility] [address] [place] [address] 03/27/2023 11:56:46 03/27/2023 12:56:33 Upper respiratory infection [id number] J06.9 Please follow up with PCP or Urgent Care in 3-5 days if no improvemen t or if any new symptoms occur that are concerning .Call 911 or go to nearest ER if you develop any shortness of breath, chest pain, severe headache, dizziness, or other concerning symptoms Health Concerns Section Related Observation LastModified by Organization Detai ls LastModified Time None Recorded Concern Status LastModified by Organization Details LastModified Time None Recorded Advance Directives Directive None Recorded Payers Encounter Date Sequence Insurance Name Policy Number Policy Todd Covered Member ID Todd Member ID Guarantor Name 11/21/2019 1 [facility] [employer] [facility] PL[facility] (MEDICAID HMO) [place] Amparo E Roxanne [id number] Amparo E Roxanne 01/30/2020 1 [facility] [employer] [facility] (MEDICAID HMO) [place] Amparo E Roxanne [id number] Amparo E Roxanne 06/29/2020 1 [facility] [employer] [facility] (MEDICAID HMO) [place] Amparo E Roxanne [id number] Amparo E Roxanne 02/10/2021 1 [facility] [employer] [facility] (MEDICAID HMO) [place] Amparo E Roxanne [id number] Amparo E Roxanne 03/27/2023 1 [facility] PLAN (MEDICAID HMO) [place] Amparo E Roxanne [id number] Amparo E Roxanne Notes Date Note Type Note Provider Name and Address Organization Details Recorded Time 03/27/2023 text/html CoughReported bypatient.Quality:i ntermittent Severity:moderate Context:Patient denies vaping; non-smoker Associated Symptoms:no fever; no chills; no chest pain; no nausea; no vomiting; no wheezing Aditya Ramon MD [address] [place], [address], [place] - [facility] 03/28/2023 12:04:15 OBGyn Episode No OBEpisode recorded.
== END 2025-01-28 08:17 | disposition home or self-care (01) ==
LOC: HO.HWS 07:33
PROVIDERS: PCP Internal Medicine; Visit Provider Obstetrics & Gynecology
DX: N93.9 Abnormal uterine and vaginal bleeding, unspecified (principal); Z32.02 Encounter for pregnancy test, result negative
CPT/HCPCS: 58100

== ENCOUNTER 2025-01-28 07:33 | Outpatient (REF) | payer SELFPAY ==
--- OUTSIDE RECORDS SUMMARY | 2025-01-28 07:53 | XMS_ITS | Clinical Summary ---
Author Organization [facility] Address [address] [place] [address] Care Team Providers Care Weather Reporter Name Role Phone Sylvia Thorne MD Primary Care Provider [phone] Medical History Medical History Date Comments Gestational diabetes mellitu s, antepartum 04/23/2010 DX:Gestational diabetes erik itus, antepartum Family History Medical History Relation Name Comments Hypertension Father Diabetes Maternal Grandfather Diabetes Maternal Grandmother Diabetes Mother Diabetes Sister Blindness Neg Hx Cataracts Neg Hx Glaucoma Neg Hx Macular degeneration Neg Hx Strabismus Neg Hx Relation Name Status Comments Father Maternal Grandfather Maternal Grandmother Mother Sister Social History Tobacco Use Types Packs/Day Years Used Date Smoking Tobacco: Former Smokeless Tobacco: Never Alcohol Use Standard Drinks/Week Comments No 0 (1 standard drink = 0.6 oz pur e alcohol) Comments Unknown Sex and Gender Information Value Date Recorded Sex Assigned at Not on file Legal Sex Female 1:08 AM EST Gender Identity Not on file Sexual Orientation Not on file Obstetrics History Last Filed Vital Signs Vital Sign Reading Time Taken Comments Blood Pressure 113/76 03/30/2022 1:02 PM EDT Pulse 79 03/30/2022 1:02 PM EDT Temperature - - Respiratory Rate - - Oxygen Saturation - - Inhaled Oxygen Concentration - - Weight 125 kg (276 lb) 04/05/2022 8:09 AM EDT Height 170.2 cm (5' 7 ) 03/30/2022 1:02 PM EDT Body Mass Index 43.23 03/30/2022 1:02 PM EDT Plan of Treatment Health Maintenance Due Date Last Done Comments Breast Cancer Screening 1974 DTaP,Tdap,and Td Vaccines (1 - Tdap) 1993 Hepatitis B Vaccines (1 of 3 - 19+ 3-dose series) 1993 Cervical Cancer Screening: P ap Smear 1995 Colorectal Cancer Screening: Colonoscopy 10/30/2022 Depression Screening 10/30/2022 HIV Screening 10/30/2022 Hepatitis C Screening 10/30/2022 Social Influencers of Health Screening 10/30/2022 Pneumococcal Vaccine: 50+ Years (1 of 1 - PCV) 2024 Zoster Vaccines (1 of 2) 2024 COVID-19 Vaccine (1 - 2023-2 5 season) 2024 Influenza Vaccine (#1) 2024 0, 01/20/2010 HIB Vaccines Aged Out No longer eligi ble based on patient's age to complete this topic HPV Vaccines Aged Out No longer eligi ble based on patient's age to complete this topic Hepatitis A Vaccines Aged Out No long er eligible based on patient's age to complete this topic IPV Vaccines Aged Out No longer eligi ble based on patient's age to complete this topic MMR Vaccines Aged Out No longer eligi ble based on patient's age to complete this topic Meningococcal ACWY Vaccine Aged Out N o longer eligible based on patient's age to complete this topic Meningococcal B Vacine Aged Out No lo nger eligible based on patient's age to complete this topic Pneumococcal Vaccine: Pediatrics (0 to 5 Years) and At-Risk Patients (6 to 64 Years) Aged Out No longer eligible b ased on patient's age to complete this topic RSV Immunization Patients Under 20 months Aged Out No longer eligible b ased on patient's age to complete this topic Varicella Vaccines Aged Out No longer eligible based on patient's age to complete this topic Care Teams Weather Reporter Relationship Specialty Start Date End Date Sylvia Thorne MD [address] [place] [address] PCP - General Internal Medicine 06/12/18
== END 2025-01-28 07:34 | disposition home or self-care (01) ==
LOC: HO.LNP 07:33
PROVIDERS: PCP Internal Medicine; Visit Provider Obstetrics & Gynecology
DX: N93.9 Abnormal uterine and vaginal bleeding, unspecified (principal); Z32.02 Encounter for pregnancy test, result negative; Z97.5 Presence of (intrauterine) contraceptive device
CPT/HCPCS: 58100; 81025; 88305